=== PATIENT | female | born 1980 | race American Indian/Alaskan Native ===

== ENCOUNTER 2019-02-06 16:27 | Emergency (ER) | payer SELFPAY ==
[2019-02-06] MEDS ORDERED: IBUPROFEN PO ONE (17:41)
--- NOTE | 2019-02-06 17:41 | Emergency Department Report ---
Blank Doc - Documentation Documentation: This is a 38-year-old female that presents with left foot pain s/p fall. This initial assessment/diagnostic orders/clinical plan/treatment(s) is/are subject to change based on patient's health status, clinical progression and re- assessment by fellow clinical providers in the ED. Further treatment and workup at subsequent clinical providers discretion. Patient/guardians urged not to elope from the ED as their condition may be serious if not clinically assessed and managed. Initial orders include: 1- Patient sent to [facility] for further evaluation and treatment 2- xray 3- motrin
[2019-02-06 17:45] VITALS: BP 124/77
--- NOTE | 2019-02-06 18:23 | XRay Report ---
XR foot 3+V LT INDICATION / CLINICAL INFORMATION: Left foot pain. COMPARISON: None available. FINDINGS: BONES/JOINT(S): No acute fracture or subluxation. No significant degenerative changes. Bipartite medi al sesamoid noted. SOFT TISSUES: No significant abnormality. ADDITIONAL FINDINGS: None. Signer Name: Darren Cisneros MD Signed: 02/06/2019 6:19 PM Workstation Name: [id number]
--- NOTE | 2019-02-06 20:03 | Emergency Department Report ---
ED Lower Extremity HPI - General Chief Complaint: Extremity Injury, Lower Stated Complaint: FALL/L FOOT/TOES PAIN Time Seen by Provider: 02/06/19 17:39 Source: patient Mode of arrival: Wheelchair Limitations: No Limitations - History of Present Illness Initial Comments: Patient is a 38-year-old female who presents the emergency room with complaints of left big toe and second toe pain that began an hour prior to arrival. States she was walking through her house that was being renovated and fell through the floor. She states she fell approximately to the length of her calf. she has a very small abrasion to her left anterior lopez. She has been ambulatory with some discomfort. She is able to move the toes. She denies any prior injury to her left foot or toes. She states her last tetanus was 3 years ago. She denies any past medical history or allergies medications. - Related Data Previous Rx's Medication Instructions Recorded Last Taken Type Naproxen [Naprosyn TAB] 500 mg PO BID PRN #20 tablet 02/06/19 Unknown Rx Allergies Allergy/AdvReac Type Severity Reaction Status Date / Time No Known Allergies Allergy Unverified 02/06/19 16:31 ED Review of Systems ROS: Stated complaint: FALL/L FOOT/TOES PAIN Other details as noted in HPI Comment: All other systems reviewed and negative ED Past Medical Hx - Past Medical History Hx Hypertension: Yes Hx Diabetes: Yes - Surgical History Additional Surgical History: D & C/ ECTOPIC PREG - Social History Smoking Status: Never Smoker Substance Use Type: Alcohol - Medications Home Medications: Home Medications Medication Instructions Recorded Confirmed Last Taken Type Naproxen [Naprosyn TAB] 500 mg PO BID PRN #20 tablet 02/06/19 Unknown Rx ED Physical Exam - General Limitations: No Limitations General appearance: alert, in no apparent distress - Head Head exam: Present: atraumatic, normocephalic - Eye Eye exam: Present: normal appearance - ENT ENT exam: Present: mucous membranes moist - Extremities Exam Extremities exam: Present: other (areas of ecchymosis to the left anterior lopez, small abrasion to the left anterior lopez, no TTP of the left tibia, fibula, ankle, or foot, TTP of the left big toe and 2nd toe, FROM of the left toes, foot, and ankle, 2+ distal pulses, sensation intact) - Neurological Exam Neurological exam: Present: alert, oriented X3 - Psychiatric Psychiatric exam: Present: normal affect, normal mood - Skin Skin exam: Present: warm, dry ED Course Vital Signs 02/06/19 02/06/19 02/06/19 17:39 17:45 20:25 Temperature 98.2 F Pulse Rate 95 H 84 Respiratory 18 18 16 Rate Blood Pressure 124/77 O2 Sat by Pulse 99 100 Oximetry ED Lower Extremity MDM - Radiology Data Radiology results: report reviewed XR foot 3+V LT INDICATION / CLINICAL INFORMATION: Left foot pain. COMPARISON: None available. FINDINGS: BONES/JOINT(S): No acute fracture or subluxation. No significant degenerative changes. Bipartite medial sesamoid noted. SOFT TISSUES: No significant abnormality. ADDITIONAL FINDINGS: None. Signer Name: Darren Cisneros MD Signed: 02/06/2019 6:19 PM Workstation Name: [id number] Transcribed By: IVÁN Dictated By: Darren Cisneros MD Electronically Authenticated By: Darren Cisneros MD Signed Date/Time: 02/06/191818 - Medical Decision Making Patient is a 38-year-old female who presents the emergency room with complaints of left big toe and second toe pain that began an hour prior to arrival. States she was walking through her house that was being renovated and fell through the floor. She states she fell approximately to the length of her calf. she has a very small abrasion to her left anterior lopez. She has been ambulatory with some discomfort. She is able to move the toes. She denies any prior injury to her left foot or toes. She states her last tetanus was 3 years ago. She denies any past medical history or allergies medications. on exam: areas of ecchymosis to the left anterior lopez, small abrasion to the left anterior lopez, no TTP of the left tibia, fibula, ankle, or foot, TTP of the left big toe and 2nd toe, FROM of the left toes, foot, and ankle, 2+ distal pulses, sensation intact. XR of the left foot shows: No acute fracture or subluxation. No significant degenerative changes. Bipartite medial sesamoid noted. pts pain treated while in the ED. pt given prescription for naproxen. advised to please take medication as prescribed as needed. may use ice, rest, elevation. follow up with a primary care doctor in the next 2-3 days. return to the emergency room for in new or worsening symptoms. - Differential Diagnosis sprain, strain, fx, dislocation, contusion, tendon/ligament injury Critical care attestation.: If time is entered above; I have spent that time in minutes in the direct care of this critically ill patient, excluding procedure time. ED Disposition Clinical Impression: Pain in left toe(s), Abrasion Traumatic ecchymosis of left lower leg Qualifiers: Encounter type: initial encounter Qualified Code(s): S80.12XA - Contusion of left lower leg, initial encounter Disposition: TO HOME OR SELFCARE Is pt being admited?: No Does the pt Need Aspirin: No Condition: Stable Instructions: Abrasion (ED), Arthralgia (ED), RICE Therapy (ED) Additional Instructions: please take medication as prescribed as needed. may use ice, rest, elevation. follow up with a primary care doctor in the next 2-3 days. return to the emergency room for in new or worsening symptoms. Prescriptions: Naproxen [Naprosyn TAB] 500 mg PO BID PRN #20 tablet PRN Reason: pain Referrals: TITO STOVER MD [Primary Care Provider] - 2-3 Days Time of Disposition: 20:04 Print Language: TOGOLESE
[2019-02-06] MEDS ORDERED: TYLENOL #3 PO ONE (20:06)
== END 2019-02-06 20:25 | disposition home or self-care (01) ==
LOC: ED 16:27
DX: S90.412A Abrasion, left great toe, initial encounter (principal); S90.415A Abrasion, left lesser toe(s), initial encounter; S80.12XA Contusion of left lower leg, initial encounter; I10 Essential (primary) hypertension; E11.9 Type 2 diabetes mellitus without complications; W18.30XA Fall on same level, unspecified, initial encounter; Y93.01 Activity, walking, marching and hiking; Y92.488 Other paved roadways as the place of occurrence of the external cause; Y99.8 Other external cause status
CPT/HCPCS: 99283